=== PATIENT | female | born 1940 | race Caucasian/White ===

== ENCOUNTER 2016-11-12 19:27 | Inpatient (IN) | payer MEDICARE, BC ==
--- NOTE | 2016-11-12 20:48 | EDM.PDOC ---
ED HPI GENERAL MEDICAL PROBLEM - General Chief Complaint: Back Pain or Injury Stated Complaint: CHEST PAIN,SOB LOWER BACK PAIN FOR ABOUT A MONTH Time Seen by Provider: 11/12/16 19:42 Source of Information: Reports: Patient History Limitations: Reports: No Limitations - History of Present Illness INITIAL COMMENTS - FREE TEXT/NARRATIVE: The patient is a 76-year-old female with multiple complaints. Her first complaint is low back pain. She states that she's had trouble with low back pain for a couple of weeks there was no injury or fall. Pain is located in low back, comes and goes, sometimes worse with movement and with lying down. She occasionally takes an Aleve or acetaminophen but hasn't had much relief with this. She did see a clinic provider and had x-rays of her back taken a few days ago. She was told she has arthritis in the back. She also is an MRI scan scheduled for 4 days from now. No weakness or numbness or urinary problems. No fever or recent illness. Additionally, she has a history of a valve replacement and heart failure and is complaining of increased bilateral lower extremity swelling. She is compliant with her 40 mg of Lasix daily and also takes hydrochlorothiazide. States she hasn't really seen a doctor about this problem in quite a while. 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 She has some pain and discomfort in both legs. States that the swelling was as high as her thighs, it's actually a little bit better today and only reaches her knees. She does not wear compression stockings. No chest pain. She does sometimes feel short of breath. She states she is able to lie flat at night. No cough or fever. Right Lower Back Pain Score (Numeric/FACES): 10 - Related Data Allergies Allergy/AdvReac Type Severity Reaction Status Date / Time No Known Allergies Allergy Verified 11/12/16 19:46 Home Meds: Home Meds Aspirin [Halfprin] 81 mg PO DAILY 11/12/16 [History] Furosemide 40 mg PO 11/12/16 [History] Losartan Potassium 50 mg PO DAILY 11/12/16 [History] Potassium Chloride 10 meq PO DAILY 11/12/16 [History] Simvastatin [Zocor] 20 mg PO BEDTIME 11/12/16 [History] SitaGLIPtin [Januvia] 25 mg PO DAILY 11/12/16 [History] Past Medical History Cardiovascular History: Reports: Heart Valve Replacement, Hypertension Gastrointestinal History: Reports: Chronic Constipation Endocrine/Metabolic History: Reports: Diabetes, Type II Social & Family History - Tobacco Use Smoking Status *Q: Never Smoker - Recreational Drug Use Recreational Drug Use: No ED ROS GENERAL - Review of Systems Review Of Systems: See Below Constitutional: Denies: Fever HEENT: Reports: No Symptoms Respiratory: Reports: Shortness of Breath. Denies: Cough Cardiovascular: Denies: Chest Pain Endocrine: Reports: No Symptoms GI/Abdominal: Denies: Abdominal Pain, Vomiting : Reports: No Symptoms Musculoskeletal: Reports: Leg Pain Skin: Reports: No Symptoms Neurological: Reports: No Symptoms Psychiatric: Reports: No Symptoms Hematologic/Lymphatic: Reports: No Symptoms Immunologic: Reports: No Symptoms ED EXAM,LOWER BACK PAIN/INJURY - Physical Exam Exam: See Below Exam Limited By: No Limitations General Appearance: Alert, WD/WN, No Apparent Distress Eye Exam: Bilateral Eye: PERRL Ears: Normal External Exam Nose: Normal Inspection Throat/Mouth: Normal Inspection, Normal Voice, No Airway Compromise Head: Atraumatic, Normocephalic Neck: Normal Inspection, Supple, Non-Tender, Full Range of Motion Respiratory/Chest: No Respiratory Distress, Lungs Clear, Normal Breath Sounds, No Accessory Muscle Use, Chest Non-Tender Cardiovascular: Normal Peripheral Pulses, Regular Rate, Rhythm, No Murmur GI/Abdominal: Soft, Non-Tender, No Distention. No: Rebound Rectal (Female) Exam: Normal Rectal Tone, Heme + Stool, Hemorrhoids, Other ( brown stool) Back Exam: Normal Inspection Extremities: Pedal Edema, Other (Bilateral, symmetric, 2+, extends to the knees) Neurological: Alert, Normal Mood/Affect, Normal Dorsiflexion, Normal Plantar Flexion, No Motor/Sensory Deficits, Oriented x 3 Psychiatric: Normal Affect, Normal Mood Skin Exam: Warm, Dry, Intact, Normal Color, No Rash Course - Vital Signs Last Recorded V/S: Last Vital Signs Temp 36.5 C 11/12/16 19:40 Pulse 67 11/12/16 19:40 Resp 20 11/12/16 19:40 BP 146/66 H 11/12/16 19:40 Pulse Ox 99 11/12/16 19:40 - Orders/Labs/Meds Orders: Active Orders 24 hr Category Date Time Status Patient Status [ADT] Routine ADT 11/12/16 21:34 Active EKG 12 Lead [EKG Documentation Completion] [RC] STAT Care 11/12/16 20:21 Active Chest 1V Frontal [CR] Stat Exams 11/12/16 20:42 Taken BILIRUBIN DIRECT [CHEM] Stat Lab 11/12/16 20:30 Received HAPTOGLOBIN [REF] Stat Lab 11/12/16 21:23 Ordered LDH, ISOENZYMES [REF] Stat Lab 11/12/16 21:24 Ordered TYPE AND SCREEN [BBK] Stat Lab 11/12/16 20:48 Ordered Labs: Laboratory Tests 11/12/16 11/12/16 11/12/16 Range/Units 20:33 20:33 20:33 WBC 7.88 (3.98-10.04) K/mm3 RBC 2.54 L (3.98-5.22) M/mm3 Hgb 7.0 L* (11.2-15.7) gm/L Hct 23.3 L (34.1-44.9) % MCV 91.7 (79.4-94.8) fl MCH 27.6 (25.6-32.2) pg MCHC 30.0 L (32.2-35.5) g/dl RDW Std Deviation 50.8 H (36.4-46.3) fL Plt Count 244 (182-369) K/mm3 MPV 9.5 (9.4-12.3) fl Neut % (Auto) 67.3 (34.0-71.1) % Lymph % (Auto) 18.3 L (19.3-51.7) % [place] % (Auto) 11.2 (4.7-12.5) % Eos % (Auto) 2.5 (0.7-5.8) Baso % (Auto) 0.4 (0.1-1.2) % Neut # (Auto) 5.31 (1.56-6.13) K/mm3 Lymph # (Auto) 1.44 (1.18-3.74) K/mm3 [place] # (Auto) 0.88 H (0.24-0.36) K/mm3 Eos # (Auto) 0.20 (0.04-0.36) K/mm3 Baso # (Auto) 0.03 (0.01-0.08) K/mm3 Manual Slide Review Abnormal smear PT (8.0-13.0) SECONDS INR Sodium 142 (136-145) mEq/L Potassium 4.4 (3.5-5.1) mEq/L Chloride 106 (98-107) mEq/L Carbon Dioxide 27 (21-32) mEq/L Anion Gap 13.4 (5-15) BUN 68 H (7-18) mg/dL Creatinine 1.9 H (0.55-1.02) mg/dL Est Cr Clr Drug Dosing 23.21 mL/min Estimated GFR (MDRD) 26 (>60) mL/min BUN/Creatinine Ratio 35.8 H (14-18) Glucose 100 (83-115) mg/dL Calcium 8.8 (8.5-10.1) mg/dL Total Bilirubin 0.5 (0.2-1.0) mg/dL AST 23 (15-37) U/L ALT 24 (14-59) U/L Alkaline Phosphatase 91 (46-116) U/L Troponin I < 0.017 (0.00-0.056) ng/mL B-Natriuretic Peptide 540 H (0-100) pg/mL Total Protein 7.1 (6.4-8.2) g/dl Albumin 3.5 (3.4-5.0) g/dl Globulin 3.6 gm/dL Albumin/Globulin Ratio 1.0 (1-2) Urine Color (Yellow) Urine Appearance (Clear) Urine pH (5.0-8.0) Ur Specific [place] (1.005-1.030) Urine Protein (Negative) Urine Glucose (UA) (Negative) Urine Ketones (Negative) Urine Occult Blood (Negative) Urine Nitrite (Negative) Urine Bilirubin (Negative) Urine Urobilinogen (0.2-1.0) Ur Leukocyte Esterase (Negative) Urine RBC (0-5) /hpf Urine WBC (0-5) /hpf Ur Epithelial Cells (0-5) /hpf Urine Bacteria (FEW) /hpf Urine Mucus (FEW) /hpf 11/12/16 11/12/16 Range/Units 20:33 20:51 WBC (3.98-10.04) K/mm3 RBC (3.98-5.22) M/mm3 Hgb (11.2-15.7) gm/L Hct (34.1-44.9) % MCV (79.4-94.8) fl MCH (25.6-32.2) pg MCHC (32.2-35.5) g/dl RDW Std Deviation (36.4-46.3) fL Plt Count (182-369) K/mm3 MPV (9.4-12.3) fl Neut % (Auto) (34.0-71.1) % Lymph % (Auto) (19.3-51.7) % [place] % (Auto) (4.7-12.5) % Eos % (Auto) (0.7-5.8) Baso % (Auto) (0.1-1.2) % Neut # (Auto) (1.56-6.13) K/mm3 Lymph # (Auto) (1.18-3.74) K/mm3 [place] # (Auto) (0.24-0.36) K/mm3 Eos # (Auto) (0.04-0.36) K/mm3 Baso # (Auto) (0.01-0.08) K/mm3 Manual Slide Review PT 10.8 (8.0-13.0) SECONDS INR 0.99 Sodium (136-145) mEq/L Potassium (3.5-5.1) mEq/L Chloride (98-107) mEq/L Carbon Dioxide (21-32) mEq/L Anion Gap (5-15) BUN (7-18) mg/dL Creatinine (0.55-1.02) mg/dL Est Cr Clr Drug Dosing mL/min Estimated GFR (MDRD) (>60) mL/min BUN/Creatinine Ratio (14-18) Glucose (83-115) mg/dL Calcium (8.5-10.1) mg/dL Total Bilirubin (0.2-1.0) mg/dL AST (15-37) U/L ALT (14-59) U/L Alkaline Phosphatase (46-116) U/L Troponin I (0.00-0.056) ng/mL B-Natriuretic Peptide (0-100) pg/mL Total Protein (6.4-8.2) g/dl Albumin (3.4-5.0) g/dl Globulin gm/dL Albumin/Globulin Ratio (1-2) Urine Color Light yellow (Yellow) Urine Appearance Clear (Clear) Urine pH 6.0 (5.0-8.0) Ur Specific [place] 1.015 (1.005-1.030) Urine Protein Negative (Negative) Urine Glucose (UA) Negative (Negative) Urine Ketones Negative (Negative) Urine Occult Blood Negative (Negative) Urine Nitrite Negative (Negative) Urine Bilirubin Negative (Negative) Urine Urobilinogen 0.2 (0.2-1.0) Ur Leukocyte Esterase 2+ H (Negative) Urine RBC 0-5 (0-5) /hpf Urine WBC 10-20 H (0-5) /hpf Ur Epithelial Cells 5-10 H (0-5) /hpf Urine Bacteria Rare (FEW) /hpf Urine Mucus Not seen (FEW) /hpf Meds: Medications Discontinued Medications Generic Name Dose Route Start Last Admin Trade Name Freq PRN Reason Stop Dose Admin Pantoprazole Sodium 80 mg 11/12/16 21:22 Protonix Iv IVPUSH 11/12/16 21:23 .BOLUS ONE - Re-Assessments/Exams Free Text/Narrative Re-Assessment/Exam: 11/12/16 21:[address] Holt who agrees to admit the patient. Departure - Departure Time of Disposition: 21:43 Disposition: Admitted As Inpatient 65 Clinical Impression: Acute blood loss anemia, Acute kidney injury, Shortness of breath Gastrointestinal bleed Qualifiers: GI bleed type/associated pathology: unspecified gastrointestinal hemorrhage type Qualified Code(s): K92.2 - Gastrointestinal hemorrhage, unspecified Back pain Qualifiers: Back pain location: low back pain Chronicity: acute Back pain laterality: midline Sciatica presence: without sciatica Qualified Code(s): M54.5 - Low back pain - Discharge Information Forms: ED Department Discharge - My Orders Last 24 Hours: My Active Orders 11/12/16 20:21 EKG 12 Lead [EKG Documentation Completion] [RC] STAT 11/12/16 20:30 BILIRUBIN DIRECT [CHEM] Stat 11/12/16 20:42 Chest 1V Frontal [CR] Stat 11/12/16 20:48 TYPE AND SCREEN [BBK] Stat 11/12/16 21:23 HAPTOGLOBIN [REF] Stat 11/12/16 21:24 LDH, ISOENZYMES [REF] Stat 11/12/16 21:34 Patient Status [ADT] Routine - Assessment/Plan Last 24 Hours: My Active Orders 11/12/16 20:21 EKG 12 Lead [EKG Documentation Completion] [RC] STAT 11/12/16 20:30 BILIRUBIN DIRECT [CHEM] Stat 11/12/16 20:42 Chest 1V Frontal [CR] Stat 11/12/16 20:48 TYPE AND SCREEN [BBK] Stat 11/12/16 21:23 HAPTOGLOBIN [REF] Stat 11/12/16 21:24 LDH, ISOENZYMES [REF] Stat 11/12/16 21:34 Patient Status [ADT] Routine
[2016-11-12] MEDS ORDERED: Pantoprazole 40 MG Vial IVPUSH ONE (21:22)
[2016-11-12] MEDS ORDERED: Acetaminophen 325 MG Tab PO PRN (22:52)
[2016-11-12] MEDS ORDERED: Ondansetron 4 MG/2 ML SDV IVPUSH PRN (22:54)
[2016-11-12] MEDS ORDERED: Piperacillin/Tazobactam 4.5 GM in Sodium Chloride 0.9% 100 ML IV ONE (23:00)
[2016-11-13] MEDS: Acetaminophen/HYDROcodone 325-5 MG Tab PO PRN (06:39)
[2016-11-13] MEDS ORDERED: Piperacillin/Tazobactam 4.5 GM in Sodium Chloride 0.9% 100 ML IV SCH (07:00)
--- NOTE | 2016-11-13 08:36 | CR ---
Chest: Portable view of the chest was obtained. Comparison: No previous study. Heart is enlarged. Upper mediastinum is normal. Atherosclerotic change seen within the aortic knob. Prosthetic heart valve is seen. Lungs are clear with no acute infiltrates. Questionable mild pulmonary vascular congestion is present. Impression: 1. Cardiomegaly with prosthetic heart valve. 2. Questionable mild pulmonary vascular congestion. Diagnostic code #3
--- NOTE | 2016-11-13 08:47 | PCM.CONSN ---
- General Info Date of Service: 11/13/16 - Patient Data Vitals - most recent: Last Vital Signs Temp 97.3 F 11/13/16 08:02 Pulse 133 H 11/13/16 08:02 Resp 18 11/13/16 08:02 BP 137/83 11/13/16 08:02 Pulse Ox 96 11/13/16 08:02 Weight - most recent: 102.603 kg I&O - last 24 hours: Intake & Output 11/12/16 11/13/16 11/13/16 23:59 07:59 15:59 Intake Total 350 Output Total 400 Balance -50 Lab Results last 24 hrs: Laboratory Results - last 24 hr 11/13/16 11/13/16 Range/Units 05:50 05:50 WBC 5.82 (3.98-10.04) K/mm3 RBC 2.54 L (3.98-5.22) M/mm3 Hgb 7.1 L* (11.2-15.7) gm/L Hct 23.5 L (34.1-44.9) % MCV 92.5 (79.4-94.8) fl MCH 28.0 (25.6-32.2) pg MCHC 30.2 L (32.2-35.5) g/dl RDW Std Deviation 51.9 H (36.4-46.3) fL Plt Count 244 (182-369) K/mm3 MPV 10.2 (9.4-12.3) fl Sodium 141 (136-145) mEq/L Potassium 3.9 (3.5-5.1) mEq/L Chloride 106 (98-107) mEq/L Carbon Dioxide 25 (21-32) mEq/L Anion Gap 13.9 (5-15) BUN 63 H (7-18) mg/dL Creatinine 1.8 H (0.55-1.02) mg/dL Est Cr Clr Drug Dosing 24.50 mL/min Estimated GFR (MDRD) 27 (>60) mL/min BUN/Creatinine Ratio 35.0 H (14-18) Glucose 183 H (83-115) mg/dL Calcium 8.7 (8.5-10.1) mg/dL Direct Bilirubin 0.10 (0.0-0.2) mg/dl Lactate Dehydrogenase 255 H (81-234) U/L C-Reactive Protein < 0.2 (<1.0) mg/dL Med Orders - Current: Current Medications Hydrocodone Bitart/Acetaminophen ([place] 325-5 Mg) 1 tab PO Q4H PRN PRN Reason: Pain Last Admin: 11/13/16 06:39 Dose: 1 tab Temazepam (Restoril) 7.5 mg PO BEDTIME PRN PRN Reason: Sleep Discontinued Medications Pantoprazole Sodium (Protonix Iv) 80 mg IVPUSH .BOLUS ONE Stop: 11/12/16 21:23 Last Admin: 11/12/16 21:44 Dose: 80 mg Consult PN Assessment/Plan Problem List Initiated/Reviewed/Updated: Yes Plan: surgical consult dictated CHARLENE
[2016-11-13] MEDS ORDERED: Enoxaparin 40 MG/0.4 ML Syringe SUBCUT SCH (09:00)
--- NOTE | 2016-11-13 10:36 | CONS ---
CONSULTING PHYSICIAN: Chris Hunter MD DATE OF CONSULTATION: 11/13/2016 HISTORY OF PRESENT ILLNESS: A 76-year-old female comes in through the emergency room complaining of low back pain. This has been a chronic problem for many years, but the last 3 weeks is increasing in intensity, low back without any radiation, constant throughout the day and night. She has been taking some Aleve. She has had a workup with plain x-rays, MRI as scheduled. The patient was noted on workup in the emergency room that she had a low hemoglobin of 7.0 with an estimated creatinine clearance of 26 and creatinine 1.9, BUN 68. The patient's further history is that she has been taking some Aleve in the last couple of days, noted some black tarry stools. She states she has had this problem some years ago which was associated with anemia and she was given iron and the condition resolved and her hemoglobin improved. She also states that she has had a heart valve that was placed in [place] greater than 10 years ago. She says it is a pig valve and not sure what position, possibly aortic. In addition to this, the patient is complaining over the last 3 weeks some lower extremity swelling and some mild shortness of breath. REVIEW OF SYSTEMS: Denies any chest pain, cough, hoarseness, slight faintness, weakness. No numbness or convulsions. No hemoptysis or hematochezia. The patient states that she has never had a colonoscopy. The patient does not see a doctor and since her doctor in [place] or retired, has not sought any medical help. Does not smoke. Does not drink. Reports type 2 diabetes, chronic constipation. MEDICATIONS: Per medication reconciliation form consisting of Januvia, Zocor, chloride, potassium, Lasix, and aspirin. SOCIAL HISTORY: Noncontributory. PHYSICAL EXAMINATION: VITAL SIGNS: Shows temperature 36, pulse 67, respirations 20, and blood pressure 146/66. HEENT: Eyes, sclerae white. Extraocular muscle motion normal. Oral cavity, healthy mucous membrane. NECK: Supple. LUNGS: Occasional rales in the right base. ABDOMEN: Soft. No tenderness, guarding, rebound, or organomegaly. HEART: Tones regular rate, opening muffled sound noted in the aortic suggesting aortic valve. EXTREMITIES: Upper extremities, unremarkable. Lower extremities; edema. No sensorineural deficit. NEUROLOGIC: Cranial nerves 3 through 12 intact. PSYCHIATRIC: Stable. SKIN: Warm and dry. ASSESSMENT: Congestive heart failure, stage IV renal failure, heart valve replacement. This was placed in [place] probably a pig valve aortic position. Although, this has not been confirmed by records. Anemia and likely gastrointestinal bleed. RECOMMENDATION: Once the patient's medical status is improved, we will then proceed with EGD and colonoscopy. JENNIFER /[id number]
[2016-11-13] MEDS ORDERED: Sodium Chloride 0.9% 250 ML ONE (11:49)
--- NOTE | 2016-11-13 12:46 | PCM.HP ---
H&P History of Present Illness - General Date of Service: 11/13/16 Source of Information: Patient, Provider History Limitations: Reports: No Limitations - History of Present Illness Initial Comments - Free Text/Narative: 76 year old female who initially had a complaint of back discomfort, however was admitted for heart failure and a low hemoglobin. She has not seen a healthcare provider in many years. She is a diabetic who never checks her blood sugar. She has only seen a physician for her heart valve, three weeks after it was inserted over 20 years ago.. The most recent compliant is lower extremity swelling; she denies orthopnea, PND or chest pain. She will receive PRBCs during her hospitalization. Right Lower Back Pain Score (Numeric/FACES): 5 - Related Data Allergies/Adverse Reactions: Allergies Allergy/AdvReac Type Severity Reaction Status Date / Time No Known Allergies Allergy Verified 11/12/16 23:07 Home Medications: Home Meds Aspirin [Halfprin] 81 mg PO DAILY 11/12/16 [History] Furosemide 40 mg PO DAILY 11/12/16 [History] Losartan Potassium 50 mg PO DAILY 11/12/16 [History] Potassium Chloride 10 meq PO DAILY 11/12/16 [History] Simvastatin [Zocor] 20 mg PO BEDTIME 11/12/16 [History] SitaGLIPtin [Januvia] 25 mg PO DAILY 11/12/16 [History] Past Medical History Cardiovascular History: Reports: Heart Failure, Heart Murmur, Heart Valve Replacement, High Cholesterol, Hypertension Gastrointestinal History: Reports: Chronic Constipation Musculoskeletal History: Reports: Back Pain, Chronic Other Musculoskeletal History: C/o low back pain. Unsure of reason. Endocrine/Metabolic History: Reports: Diabetes, Type II - Past Surgical History HEENT Surgical History: Reports: Cataract Surgery Cardiovascular Surgical History: Reports: Valve Replacement Social & Family History - Family History Family Medical History: Noncontributory Endocrine/Metabolic: Reports: Diabetes, type II - Tobacco Use Smoking Status *Q: Never Smoker Second Hand Smoke Exposure: Yes - Caffeine Use Other Caffeine Use: Coffee 2-3 cups/day. Light diet pepsi 1-5/day - Recreational Drug Use Recreational Drug Use: No H&P Review of Systems - Review of Systems: Review Of Systems: See Below General: Reports: Weakness, Fatigue HEENT: Reports: No Symptoms Pulmonary: Reports: No Symptoms Cardiovascular: Reports: No Symptoms Gastrointestinal: Reports: No Symptoms Genitourinary: Reports: No Symptoms Musculoskeletal: Reports: No Symptoms Skin: Reports: No Symptoms Psychiatric: Reports: No Symptoms Neurological: Reports: No Symptoms Hematologic/Lymphatic: Reports: No Symptoms Immunologic: Reports: No Symptoms Exam - Exam Exam: See Below - Vital Signs Vital Signs: Last Vital Signs Temp 36.6 C 11/13/16 12:30 Pulse 55 L 11/13/16 12:30 Resp 20 11/13/16 12:30 BP 122/79 11/13/16 12:30 Pulse Ox 100 11/13/16 12:30 Weight: 102.603 kg - Exam Quality Assessment: DVT Prophylaxis General: Alert, Oriented, Cooperative HEENT: Nares Patent, Normal Nasal Septum, Posterior Pharynx Clear, Pupils Equal , Pupils Reactive, TMs Clear Neck: Supple, Trachea Midline Lungs: Normal Respiratory Effort, Decreased Breath Sounds Cardiovascular: Regular Rate, Diastolic Murmur GI/Abdominal Exam: Normal Bowel Sounds, Soft, Non-Tender, No Organomegaly, No Distention (Female) Exam: Deferred Rectal (Female) Exam: Deferred Back Exam: Normal Inspection Extremities: Normal Inspection, Pedal Edema Neurological: Cranial Nerves Intact, Normal Gait, Normal Speech Neuro Extensive - Mental Status: Alert, Oriented x3 - Patient Data Lab Results Last 24 hrs: Laboratory Results - last 24 hr 11/13/16 11/13/16 Range/Units 05:50 05:50 WBC 5.82 (3.98-10.04) K/mm3 RBC 2.54 L (3.98-5.22) M/mm3 Hgb 7.1 L* (11.2-15.7) gm/L Hct 23.5 L (34.1-44.9) % MCV 92.5 (79.4-94.8) fl MCH 28.0 (25.6-32.2) pg MCHC 30.2 L (32.2-35.5) g/dl RDW Std Deviation 51.9 H (36.4-46.3) fL Plt Count 244 (182-369) K/mm3 MPV 10.2 (9.4-12.3) fl Sodium 141 (136-145) mEq/L Potassium 3.9 (3.5-5.1) mEq/L Chloride 106 (98-107) mEq/L Carbon Dioxide 25 (21-32) mEq/L Anion Gap 13.9 (5-15) BUN 63 H (7-18) mg/dL Creatinine 1.8 H (0.55-1.02) mg/dL Est Cr Clr Drug Dosing 24.50 mL/min Estimated GFR (MDRD) 27 (>60) mL/min BUN/Creatinine Ratio 35.0 H (14-18) Glucose 183 H (83-115) mg/dL Calcium 8.7 (8.5-10.1) mg/dL Direct Bilirubin 0.10 (0.0-0.2) mg/dl Lactate Dehydrogenase 255 H (81-234) U/L C-Reactive Protein < 0.2 (<1.0) mg/dL Result Diagrams: 11/14/16 05:31 11/14/16 05:31 *Q Meaningful Use (ADM) - VTE *Q VTE Criteria *Q: - Stroke *Q Stroke Criteria *Q: - AMI *Q AMI Criteria *Q: - Problem List (1) Diastolic CHF SNOMED Code(s): 272040499, 615818234 ICD Code: I50.30 - UNSPECIFIED DIASTOLIC (CONGESTIVE) HEART FAILURE Status : Acute Current Visit: Yes (2) Acute blood loss anemia SNOMED Code(s): 991795220 ICD Code: D62 - ACUTE POSTHEMORRHAGIC ANEMIA Status: Acute Current Visit : Yes (3) Acute kidney injury SNOMED Code(s): 33919632 ICD Code: N17.9 - ACUTE KIDNEY FAILURE, UNSPECIFIED Status: Acute Current Visit: Yes (4) Back pain SNOMED Code(s): 410419390 ICD Code: M54.9 - DORSALGIA, UNSPECIFIED Status: Acute Current Visit: Yes Qualifiers: Back pain location: low back pain Chronicity: acute Back pain laterality : midline Sciatica presence: without sciatica Qualified Code(s): M54.5 - Low back pain (5) Shortness of breath SNOMED Code(s): 301187193 ICD Code: R06.02 - SHORTNESS OF BREATH Status: Acute Current Visit: Yes Problem List Initiated/Reviewed/Updated: Yes Orders Last 24hrs: Active Orders 24 hr Category Date Time Status Antiembolic Devices [RC] BID Care 11/12/16 22:52 Active Notify Provider Consults [RC] ASDIRECTED Care 11/12/16 23:06 Active Oxygen Therapy Adult [Oxygen Therapy] [RC] ASDIRECTED Care 11/12/16 22:50 Inactive Up ad Puja [RC] QSHIFT Care 11/13/16 00:13 Active Vital Signs [RC] Q4HR Care 11/12/16 23:40 Active Consult to Occupational Therapy [OT Evaluation and Cons 11/12/16 23:10 Active Treatment] [CONS] Routine Consult to Physician [CONS] Routine Cons 11/12/16 23:05 Active Consult to Distribution Specialist [CONS] Routine Cons 11/13/16 08:00 Active PT Evaluation and Treatment [CONS] Routine Cons 11/12/16 23:10 Active CULTURE URINE [RM] Routine Lab 11/13/16 00:12 Received HEMOGLOBIN [HEME] Routine Lab 11/13/16 09:41 Ordered RED BLOOD CELLS LP [BBK] Routine Lab 11/13/16 09:41 Results Acetaminophen/HYDROcodone [[place] 325-5 MG] Med 11/13/16 06:16 Active 1 tab PO Q4H PRN Furosemide [Lasix] Med 11/13/16 14:00 Active 40 mg IVPUSH BID@1400,1630 Temazepam [Restoril] Med 11/12/16 22:51 Active 7.5 mg PO BEDTIME PRN cefTRIAXone [Rocephin] 2 gm Med 11/13/16 13:00 Active Sodium Chloride 0.9% [Normal Saline] 100 ml IV Q24H Heat Therapy [OM.PC] Routine Oth 11/13/16 04:40 Ordered YASSINE Hose [Antiembolic Hose] [OM.PC] Routine Oth 11/12/16 22:52 Ordered Transfuse Red Blood Cells [COMM] Routine Oth 11/13/16 09:41 Ordered Resuscitation Status Routine Resus Stat 11/12/16 23:07 Ordered Medication Orders Hydrocodone Bitart/Acetaminophen ([place] 325-5 Mg) 1 tab PO Q4H PRN PRN Reason: Pain Last Admin: 11/13/16 06:39 Dose: 1 tab Furosemide (Lasix) 40 mg IVPUSH BID@1400,1630 ALVINA Stop: 11/13/16 16:31 Ceftriaxone Sodium 2 gm/ (Sodium Chloride) 100 mls @ 200 mls/hr IV Q24H ALVINA Temazepam (Restoril) 7.5 mg PO BEDTIME PRN PRN Reason: Sleep Assessment/Plan Comment:: Impression: GI bleed, hemodynamically stable History of porcine Ao valve CHF, diastolic cf systolic ARF, CKD stage IV currently Chronic Diabetes Melitus HTN HLD Plan: Transfuse 2 units PRBCs Diurese as tolerated Hold nephrotoxin meds Resume Home meds 2D echo re; AVR Diabetic teaching Gen surg consult Fe studies, start FeSO4 SW/PT/OT DVT/GI prophyalxis
[2016-11-13] MEDS ORDERED: 50% Dextrose in Water 50 ML Syringe IVPUSH PRN (12:58)
[2016-11-13] MEDS: Sodium Chloride 0.9% 250 ML IV SCH ×2 (14:00→17:00)
[2016-11-13] MEDS: Furosemide 40 MG/4 ML VIAL IVPUSH SCH ×2 (15:19→19:49)
[2016-11-13] MEDS: cefTRIAXone 2 GM in Sodium Chloride 0.9% 100 ML IV SCH (16:06)
--- NOTE | 2016-11-13 16:41 | US ---
Renal ultrasound: Multiple real-time images of the kidneys were obtained. Kidneys show no hydronephrosis or mass. Resistivity indices are slightly inaccurate but felt to be mildly elevated compatible with medical renal disease. Right kidney measures 10.6 cm in length. Left kidney measures 10.7 cm in length. Prevoid volume within the bladder is 229 mL and post void volume is 19 mL. Impression: 1. Somewhat elevated resistivity indices are felt to be present compatible with medical renal disease. 2. Minimal postvoid residual within the bladder. 3. No additional abnormality identified on renal ultrasound exam. Diagnostic code #3
[2016-11-13] MEDS: Insulin Aspart 100 Units/ML 3 ML Pen SUBCUT SCH ×2 (17:24→21:41)
[2016-11-13] MEDS: Simvastatin 20 MG Tab PO SCH (23:11)
[2016-11-13] MEDS: Temazepam 7.5 MG Cap PO PRN (23:15)
[2016-11-14] MEDS: Insulin Aspart 100 Units/ML 3 ML Pen SUBCUT SCH ×4 (06:12→22:46)
[2016-11-14] MEDS ORDERED: Diphtheria,Pertussis(Acell),Tetanus Vaccine 0.5 ML SDV IM ONE (10:00)
[2016-11-14] MEDS: Aspirin 81 MG Tab.EC PO SCH (10:01)
[2016-11-14] MEDS: Losartan 25 MG Tab PO SCH (10:06)
[2016-11-14] MEDS: cefTRIAXone 2 GM in Sodium Chloride 0.9% 100 ML IV SCH (13:46)
--- NOTE | 2016-11-14 15:18 | PCM.PN ---
- General Info Date of Service: 11/14/16 Functional Status: Reports: Pain Controlled, Tolerating Diet, Ambulating - Review of Systems General: Reports: Weakness, Fatigue HEENT: Reports: No Symptoms Pulmonary: Reports: No Symptoms Cardiovascular: Reports: No Symptoms Gastrointestinal: Reports: No Symptoms Genitourinary: Reports: No Symptoms Musculoskeletal: Reports: No Symptoms Skin: Reports: No Symptoms Neurological: Reports: No Symptoms Psychiatric: Reports: No Symptoms - Patient Data Vitals - Most Recent: Last Vital Signs Temp 36.3 C 11/14/16 11:50 Pulse 66 11/14/16 11:54 Resp 12 11/14/16 11:50 BP 132/72 11/14/16 11:50 Pulse Ox 98 11/14/16 11:54 Weight - Most Recent: 102.603 kg I&O - Last 24 Hours: Intake & Output 11/14/16 11/14/16 11/14/16 06:59 14:59 22:59 Intake Total 750 300 Output Total 700 Balance 50 300 Lab Results Last 24 Hours: Laboratory Results - last 24 hr 11/13/16 11/13/16 11/13/16 Range/Units 14:09 17:15 21:15 WBC (3.98-10.04) K/mm3 RBC (3.98-5.22) M/mm3 Hgb 8.5 L (11.2-15.7) gm/L Hct (34.1-44.9) % MCV (79.4-94.8) fl MCH (25.6-32.2) pg MCHC (32.2-35.5) g/dl RDW Std Deviation (36.4-46.3) fL Plt Count (182-369) K/mm3 MPV (9.4-12.3) fl Neut % (Auto) (34.0-71.1) % Lymph % (Auto) (19.3-51.7) % [place] % (Auto) (4.7-12.5) % Eos % (Auto) (0.7-5.8) Baso % (Auto) (0.1-1.2) % Neut # (Auto) (1.56-6.13) K/mm3 Lymph # (Auto) (1.18-3.74) K/mm3 [place] # (Auto) (0.24-0.36) K/mm3 Eos # (Auto) (0.04-0.36) K/mm3 Baso # (Auto) (0.01-0.08) K/mm3 Sodium (136-145) mEq/L Potassium (3.5-5.1) mEq/L Chloride (98-107) mEq/L Carbon Dioxide (21-32) mEq/L Anion Gap (5-15) BUN (7-18) mg/dL Creatinine (0.55-1.02) mg/dL Est Cr Clr Drug Dosing mL/min Estimated GFR (MDRD) (>60) mL/min BUN/Creatinine Ratio (14-18) Glucose (83-115) mg/dL POC Glucose 119 H (83-110) mg/dL Hemoglobin A1c 6.10 (4.50-6.20) % Calcium (8.5-10.1) mg/dL 11/13/16 11/14/16 11/14/16 Range/Units 21:35 05:31 05:31 WBC 7.72 (3.98-10.04) K/mm3 RBC 3.07 L (3.98-5.22) M/mm3 Hgb 8.5 L (11.2-15.7) gm/L Hct 27.5 L (34.1-44.9) % MCV 89.6 (79.4-94.8) fl MCH 27.7 (25.6-32.2) pg MCHC 30.9 L (32.2-35.5) g/dl RDW Std Deviation 51.4 H (36.4-46.3) fL Plt Count 209 (182-369) K/mm3 MPV 10.5 (9.4-12.3) fl Neut % (Auto) 70.9 (34.0-71.1) % Lymph % (Auto) 15.8 L (19.3-51.7) % [place] % (Auto) 10.5 (4.7-12.5) % Eos % (Auto) 2.2 (0.7-5.8) Baso % (Auto) 0.3 (0.1-1.2) % Neut # (Auto) 5.48 (1.56-6.13) K/mm3 Lymph # (Auto) 1.22 (1.18-3.74) K/mm3 [place] # (Auto) 0.81 H (0.24-0.36) K/mm3 Eos # (Auto) 0.17 (0.04-0.36) K/mm3 Baso # (Auto) 0.02 (0.01-0.08) K/mm3 Sodium 142 (136-145) mEq/L Potassium 3.9 (3.5-5.1) mEq/L Chloride 106 (98-107) mEq/L Carbon Dioxide 26 (21-32) mEq/L Anion Gap 13.9 (5-15) BUN 53 H (7-18) mg/dL Creatinine 1.6 H (0.55-1.02) mg/dL Est Cr Clr Drug Dosing 27.56 mL/min Estimated GFR (MDRD) 31 (>60) mL/min BUN/Creatinine Ratio 33.1 H (14-18) Glucose 112 (83-115) mg/dL POC Glucose 127 H (83-110) mg/dL Hemoglobin A1c (4.50-6.20) % Calcium 8.7 (8.5-10.1) mg/dL 11/14/16 11/14/16 Range/Units 06:08 11:06 WBC (3.98-10.04) K/mm3 RBC (3.98-5.22) M/mm3 Hgb (11.2-15.7) gm/L Hct (34.1-44.9) % MCV (79.4-94.8) fl MCH (25.6-32.2) pg MCHC (32.2-35.5) g/dl RDW Std Deviation (36.4-46.3) fL Plt Count (182-369) K/mm3 MPV (9.4-12.3) fl Neut % (Auto) (34.0-71.1) % Lymph % (Auto) (19.3-51.7) % [place] % (Auto) (4.7-12.5) % Eos % (Auto) (0.7-5.8) Baso % (Auto) (0.1-1.2) % Neut # (Auto) (1.56-6.13) K/mm3 Lymph # (Auto) (1.18-3.74) K/mm3 [place] # (Auto) (0.24-0.36) K/mm3 Eos # (Auto) (0.04-0.36) K/mm3 Baso # (Auto) (0.01-0.08) K/mm3 Sodium (136-145) mEq/L Potassium (3.5-5.1) mEq/L Chloride (98-107) mEq/L Carbon Dioxide (21-32) mEq/L Anion Gap (5-15) BUN (7-18) mg/dL Creatinine (0.55-1.02) mg/dL Est Cr Clr Drug Dosing mL/min Estimated GFR (MDRD) (>60) mL/min BUN/Creatinine Ratio (14-18) Glucose (83-115) mg/dL POC Glucose 106 120 H (83-110) mg/dL Hemoglobin A1c (4.50-6.20) % Calcium (8.5-10.1) mg/dL Med Orders - Current: Current Medications Hydrocodone Bitart/Acetaminophen ([place] 325-5 Mg) 1 tab PO Q4H PRN PRN Reason: Pain Last Admin: 11/13/16 06:39 Dose: 1 tab Aspirin (Halfprin) 81 mg PO DAILY [facility] Last Admin: 11/14/16 10:01 Dose: 81 mg Dextrose/Water (Dextrose 50% In Water) 50 ml IVPUSH ASDIRECTED PRN PRN Reason: Hypoglycemia Ceftriaxone Sodium 2 gm/ (Sodium Chloride) 100 mls @ 200 mls/hr IV Q24H [facility] Last Admin: 11/14/16 13:46 Dose: 200 mls/hr Sodium Chloride (Normal Saline) 250 mls @ 100 mls/hr IV ASDIRECTED [facility] Last Admin: 11/13/16 17:00 Dose: 100 mls/hr Insulin Aspart (Novolog) 0 unit SUBCUT QIDACANDBED [facility] PRN Reason: Protocol Last Admin: 11/14/16 11:42 Dose: Not Given Losartan Potassium (Cozaar) 50 mg PO DAILY [facility] Last Admin: 11/14/16 10:06 Dose: 50 mg Simvastatin (Zocor) 20 mg PO BEDTIME [facility] Last Admin: 11/13/16 23:11 Dose: 20 mg Temazepam (Restoril) 7.5 mg PO BEDTIME PRN PRN Reason: Sleep Last Admin: 11/13/16 23:15 Dose: 7.5 mg Discontinued Medications Diphtheria/Tetanus/Acell Pertussis (Adacel) 0.5 ml IM .ONCE ONE Stop: 11/14/16 10:01 Furosemide (Lasix) 40 mg IVPUSH BID@1400,1630 [facility] Stop: 11/13/16 16:31 Last Admin: 11/13/16 19:49 Dose: 40 mg Sodium Chloride (Normal Saline) Confirm Administered Dose 250 mls @ as directed .ROUTE .STK-MED ONE Stop: 11/13/16 11:50 Last Admin: 11/13/16 15:59 Dose: Not Given Pantoprazole Sodium (Protonix Iv) 80 mg IVPUSH .BOLUS ONE Stop: 11/12/16 21:23 Last Admin: 11/12/16 21:44 Dose: 80 mg - Exam Quality Assessment: DVT Prophylaxis General: Alert, Oriented, Cooperative, No Acute Distress HEENT: Pupils Equal, Pupils Reactive, EOMI, Mucous Membr. Moist/[place] Neck: Supple, Trachea Midline Lungs: Normal Respiratory Effort, Decreased Breath Sounds Cardiovascular: Regular Rate GI/Abdominal Exam: Normal Bowel Sounds, Soft, Non-Tender, No Organomegaly, No Distention (Female) Exam: Deferred Back Exam: Normal Inspection Extremities: Normal Inspection Skin: Warm Neurological: No New Focal Deficit Psy/Mental Status: Alert, Normal Affect, Normal Mood - Problem List & Annotations (1) Diastolic CHF SNOMED Code(s): 066780729, 068475407 Code(s): I50.30 - UNSPECIFIED DIASTOLIC (CONGESTIVE) HEART FAILURE Status: Acute Current Visit: Yes (2) Acute blood loss anemia SNOMED Code(s): 473739621 Code(s): D62 - ACUTE POSTHEMORRHAGIC ANEMIA Status: Acute Current Visit: Yes (3) Acute kidney injury SNOMED Code(s): 07422612 Code(s): N17.9 - ACUTE KIDNEY FAILURE, UNSPECIFIED Status: Acute Current Visit: Yes (4) Back pain SNOMED Code(s): 539978126 Code(s): M54.9 - DORSALGIA, UNSPECIFIED Status: Acute Current Visit: Yes Qualifiers: Back pain location: low back pain Chronicity: acute Back pain laterality : midline Sciatica presence: without sciatica Qualified Code(s): M54.5 - Low back pain (5) Shortness of breath SNOMED Code(s): 749930970 Code(s): R06.02 - SHORTNESS OF BREATH Status: Acute Current Visit: Yes - Problem List Review Problem List Initiated/Reviewed/Updated: Yes - My Orders Last 24 Hours: My Active Orders 11/13/16 17:00 Insulin Aspart [NovoLOG] See Protocol SUBCUT QIDACANDBED 11/13/16 18:06 Congestive Heart Failure Education [OM.PC] Routine 11/13/16 20:25 Vaccines to be Administered [RC] PER UNIT ROUTINE 11/13/16 21:00 Simvastatin [Zocor] 20 mg PO BEDTIME 11/13/16 Dinner Consistent Carbohydrate Diet [DIET] Heart Healthy Diet [DIET] 11/14/16 09:00 Consult to [employer] [Consult to Diabetic Nurse Specialist] [CONS] Routine Aspirin [Halfprin] 81 mg PO DAILY Losartan [Cozaar] 50 mg PO DAILY 11/15/16 05:00 BMP [BASIC METABOLIC PANEL,BMP] [CHEM] DAILY CBC WITH AUTO DIFF [HEME] DAILY CRP [C-REACTIVE PROTEIN] [CHEM] DAILY 11/16/16 05:00 BMP [BASIC METABOLIC PANEL,BMP] [CHEM] DAILY CBC WITH AUTO DIFF [HEME] DAILY CRP [C-REACTIVE PROTEIN] [CHEM] DAILY 11/17/16 05:00 CRP [C-REACTIVE PROTEIN] [CHEM] DAILY - Plan Plan:: Impression: GI bleed, hemodynamically stable History of porcine Ao valve CHF, diastolic cf systolic ARF, CKD stage IV currently Chronic Diabetes Melitus HTN HLD Plan: Transfuse 2 units PRBCs Diurese as tolerated Hold nephrotoxin meds Resume Home meds 2D echo re; AVR Diabetic teaching Gen surg consult Fe studies, start FeSO4 SW/PT/OT DVT/GI prophyalxis
[2016-11-14] MEDS: Sodium Chloride 0.9% 250 ML IV SCH (17:26)
[2016-11-14] MEDS: Furosemide 40 MG/4 ML VIAL IVPUSH SCH (21:05)
[2016-11-14] MEDS: Temazepam 7.5 MG Cap PO PRN (21:32)
[2016-11-14] MEDS: Simvastatin 20 MG Tab PO SCH (21:33)
[2016-11-15] MEDS: Furosemide 40 MG/4 ML VIAL IVPUSH SCH (00:03)
[2016-11-15] MEDS: Insulin Aspart 100 Units/ML 3 ML Pen SUBCUT SCH ×4 (06:43→21:16)
[2016-11-15] MEDS: Aspirin 81 MG Tab.EC PO SCH (09:19)
[2016-11-15] MEDS: Losartan 25 MG Tab PO SCH (09:19)
[2016-11-15] MEDS: Penicillin G Potassium 2.5 MILLUNITS in Sodium Chloride 0.9% 100 ML IV SCH ×3 (10:09→21:07)
--- NOTE | 2016-11-15 12:43 | PCM.PN ---
- General Info Date of Service: 11/15/16 Functional Status: Reports: Pain Controlled, Tolerating Diet, Ambulating, Urinating - Review of Systems General: Reports: Weakness HEENT: Reports: No Symptoms Pulmonary: Reports: No Symptoms Cardiovascular: Reports: No Symptoms Gastrointestinal: Reports: No Symptoms Genitourinary: Reports: No Symptoms Musculoskeletal: Reports: No Symptoms Skin: Reports: No Symptoms Neurological: Reports: No Symptoms Psychiatric: Reports: No Symptoms - Patient Data Vitals - Most Recent: Last Vital Signs Temp 36.4 C 11/15/16 11:43 Pulse 58 L 11/15/16 11:43 Resp 16 11/15/16 11:43 BP 139/47 L 11/15/16 11:43 Pulse Ox 96 11/15/16 11:43 Weight - Most Recent: 102.467 kg I&O - Last 24 Hours: Intake & Output 11/14/16 11/15/16 11/15/16 22:59 06:59 14:59 Intake Total 1318 1252 300 Output Total 1000 Balance 318 1252 300 Lab Results Last 24 Hours: Laboratory Results - last 24 hr 11/14/16 11/14/16 11/15/16 Range/Units 16:42 21:30 06:00 WBC 6.97 (3.98-10.04) K/mm3 RBC 3.63 L (3.98-5.22) M/mm3 Hgb 10.4 L (11.2-15.7) gm/L Hct 32.6 L (34.1-44.9) % MCV 89.8 (79.4-94.8) fl MCH 28.7 (25.6-32.2) pg MCHC 31.9 L (32.2-35.5) g/dl RDW Std Deviation 50.8 H (36.4-46.3) fL Plt Count 203 (182-369) K/mm3 MPV 10.5 (9.4-12.3) fl Neut % (Auto) 66.6 (34.0-71.1) % Lymph % (Auto) 17.6 L (19.3-51.7) % [place] % (Auto) 11.9 (4.7-12.5) % Eos % (Auto) 3.4 (0.7-5.8) Baso % (Auto) 0.4 (0.1-1.2) % Neut # (Auto) 4.63 (1.56-6.13) K/mm3 Lymph # (Auto) 1.23 (1.18-3.74) K/mm3 [place] # (Auto) 0.83 H (0.24-0.36) K/mm3 Eos # (Auto) 0.24 (0.04-0.36) K/mm3 Baso # (Auto) 0.03 (0.01-0.08) K/mm3 Sodium (136-145) mEq/L Potassium (3.5-5.1) mEq/L Chloride (98-107) mEq/L Carbon Dioxide (21-32) mEq/L Anion Gap (5-15) BUN (7-18) mg/dL Creatinine (0.55-1.02) mg/dL Est Cr Clr Drug Dosing mL/min Estimated GFR (MDRD) (>60) mL/min BUN/Creatinine Ratio (14-18) Glucose (83-115) mg/dL POC Glucose 150 H 137 H (83-110) mg/dL Calcium (8.5-10.1) mg/dL C-Reactive Protein (<1.0) mg/dL 11/15/16 11/15/16 11/15/16 Range/Units 06:00 06:15 11:33 WBC (3.98-10.04) K/mm3 RBC (3.98-5.22) M/mm3 Hgb (11.2-15.7) gm/L Hct (34.1-44.9) % MCV (79.4-94.8) fl MCH (25.6-32.2) pg MCHC (32.2-35.5) g/dl RDW Std Deviation (36.4-46.3) fL Plt Count (182-369) K/mm3 MPV (9.4-12.3) fl Neut % (Auto) (34.0-71.1) % Lymph % (Auto) (19.3-51.7) % [place] % (Auto) (4.7-12.5) % Eos % (Auto) (0.7-5.8) Baso % (Auto) (0.1-1.2) % Neut # (Auto) (1.56-6.13) K/mm3 Lymph # (Auto) (1.18-3.74) K/mm3 [place] # (Auto) (0.24-0.36) K/mm3 Eos # (Auto) (0.04-0.36) K/mm3 Baso # (Auto) (0.01-0.08) K/mm3 Sodium 144 (136-145) mEq/L Potassium 3.9 (3.5-5.1) mEq/L Chloride 108 H (98-107) mEq/L Carbon Dioxide 26 (21-32) mEq/L Anion Gap 13.9 (5-15) BUN 49 H (7-18) mg/dL Creatinine 1.4 H (0.55-1.02) mg/dL Est Cr Clr Drug Dosing 31.50 mL/min Estimated GFR (MDRD) 36 (>60) mL/min BUN/Creatinine Ratio 35.0 H (14-18) Glucose 101 (83-115) mg/dL POC Glucose 102 132 H (83-110) mg/dL Calcium 8.9 (8.5-10.1) mg/dL C-Reactive Protein 2.3 H* (<1.0) mg/dL Med Orders - Current: Current Medications Hydrocodone Bitart/Acetaminophen ([place] 325-5 Mg) 1 tab PO Q4H PRN PRN Reason: Pain Last Admin: 11/13/16 06:39 Dose: 1 tab Aspirin (Halfprin) 81 mg PO DAILY [facility] Last Admin: 11/15/16 09:19 Dose: 81 mg Dextrose/Water (Dextrose 50% In Water) 50 ml IVPUSH ASDIRECTED PRN PRN Reason: Hypoglycemia Penicillin G Potassium 2.5 (millunits/ Sodium Chloride) 100 mls @ 55 mls/hr IV Q6H [facility] Last Admin: 11/15/16 10:09 Dose: 55 mls/hr Insulin Aspart (Novolog) 0 unit SUBCUT QIDACANDBED [facility] PRN Reason: Protocol Last Admin: 11/15/16 12:11 Dose: Not Given Losartan Potassium (Cozaar) 50 mg PO DAILY [facility] Last Admin: 11/15/16 09:19 Dose: 50 mg Saccharomyces Boulardii (Florastor) 250 mg PO BID [facility] Simvastatin (Zocor) 20 mg PO BEDTIME [facility] Last Admin: 11/14/16 21:33 Dose: 20 mg Temazepam (Restoril) 7.5 mg PO BEDTIME PRN PRN Reason: Sleep Last Admin: 11/14/16 21:32 Dose: 7.5 mg Discontinued Medications Diphtheria/Tetanus/Acell Pertussis (Adacel) 0.5 ml IM .ONCE ONE Stop: 11/14/16 10:01 Furosemide (Lasix) 40 mg IVPUSH BID@1400,1630 [facility] Stop: 11/13/16 16:31 Last Admin: 11/13/16 19:49 Dose: 40 mg Furosemide (Lasix) 40 mg IVPUSH ASDIRECTED [facility] Stop: 11/14/16 23:30 Last Admin: 11/15/16 00:03 Dose: 40 mg Ceftriaxone Sodium 2 gm/ (Sodium Chloride) 100 mls @ 200 mls/hr IV Q24H [facility] Last Admin: 11/14/16 13:46 Dose: 200 mls/hr Sodium Chloride (Normal Saline) Confirm Administered Dose 250 mls @ as directed .ROUTE .STK-MED ONE Stop: 11/13/16 11:50 Last Admin: 11/13/16 15:59 Dose: Not Given Sodium Chloride (Normal Saline) 250 mls @ 100 mls/hr IV ASDIRECTED [facility] Last Admin: 11/14/16 17:26 Dose: 100 mls/hr Pantoprazole Sodium (Protonix Iv) 80 mg IVPUSH .BOLUS ONE Stop: 11/12/16 21:23 Last Admin: 11/12/16 21:44 Dose: 80 mg - Exam Quality Assessment: DVT Prophylaxis General: Alert, Oriented, Cooperative, No Acute Distress HEENT: Pupils Equal, Pupils Reactive, Mucous Membr. Moist/[place] Neck: Supple, Trachea Midline, No JVD Lungs: Normal Respiratory Effort Cardiovascular: Regular Rate, Regular Rhythm GI/Abdominal Exam: Normal Bowel Sounds, Soft, Non-Tender, No Organomegaly, No Distention (Female) Exam: Deferred Back Exam: Normal Inspection Extremities: Normal Inspection, Non-Tender Skin: Warm Neurological: No New Focal Deficit, Normal Gait, Normal Speech Psy/Mental Status: Alert, Normal Affect, Normal Mood - Problem List & Annotations (1) Diastolic CHF SNOMED Code(s): 613751056, 917437378 Code(s): I50.30 - UNSPECIFIED DIASTOLIC (CONGESTIVE) HEART FAILURE Status: Acute Current Visit: Yes (2) Acute blood loss anemia SNOMED Code(s): 257061659 Code(s): D62 - ACUTE POSTHEMORRHAGIC ANEMIA Status: Acute Current Visit: Yes (3) Acute kidney injury SNOMED Code(s): 27508085 Code(s): N17.9 - ACUTE KIDNEY FAILURE, UNSPECIFIED Status: Acute Current Visit: Yes (4) Back pain SNOMED Code(s): 994800742 Code(s): M54.9 - DORSALGIA, UNSPECIFIED Status: Acute Current Visit: Yes Qualifiers: Back pain location: low back pain Chronicity: acute Back pain laterality : midline Sciatica presence: without sciatica Qualified Code(s): M54.5 - Low back pain (5) Shortness of breath SNOMED Code(s): 721547454 Code(s): R06.02 - SHORTNESS OF BREATH Status: Acute Current Visit: Yes - Problem List Review Problem List Initiated/Reviewed/Updated: Yes - My Orders Last 24 Hours: My Active Orders 11/15/16 10:00 Penicillin G Potassium [Pfizerpen] 2.5 millunits Sodium Chloride 0.9% [Normal Saline] 100 ml IV Q6H 11/16/16 05:00 BMP [BASIC METABOLIC PANEL,BMP] [CHEM] DAILY CBC WITH AUTO DIFF [HEME] DAILY CRP [C-REACTIVE PROTEIN] [CHEM] DAILY 11/16/16 09:00 Saccharomyces Boulardii [Florastor] 250 mg PO BID 11/17/16 05:00 CRP [C-REACTIVE PROTEIN] [CHEM] DAILY - Plan Plan:: Impression: GI bleed, hemodynamically stable Received 4 units PRBCs, currently stable History of porcine Ao valve CHF, diastolic cf systolic ARF, CKD stage IV currently Chronic Diabetes Melitus HTN HLD Plan: Diurese as tolerated Hold nephrotoxin meds Resume Home meds 2D echo re; AVR Diabetic teaching Gen surg consult Fe studies, start FeSO4 DC home 11/16/16? SW/PT/OT DVT/GI prophyalxis LOS>96 hours for treatment
[2016-11-15] MEDS: Simvastatin 20 MG Tab PO SCH (21:07)
[2016-11-15] MEDS: Temazepam 7.5 MG Cap PO PRN (21:07)
[2016-11-16] MEDS: Acetaminophen/HYDROcodone 325-5 MG Tab PO PRN (03:19)
[2016-11-16] MEDS: Penicillin G Potassium 2.5 MILLUNITS in Sodium Chloride 0.9% 100 ML IV SCH ×2 (03:27→09:10)
[2016-11-16] MEDS: Insulin Aspart 100 Units/ML 3 ML Pen SUBCUT SCH ×2 (06:45→14:00)
[2016-11-16 08:23] VITALS: BP 136/79
--- NOTE | 2016-11-16 08:46 | PCM.DCSUM1 ---
<Gretchen Wellington M - Last Filed: 11/16/16 08:58> Discharge Summary - Hospital Course Free Text/Narrative:: 76 year old female initially evaluted in the ER, who initially had a complaint of back discomfort, however was admitted for heart failure and a low hemoglobin. She has not seen a healthcare provider in many years. She is a diabetic who never checks her blood sugar. She has only seen a physician for her heart valve, three weeks after it was inserted over 20 years ago.. The most recent compliant is lower extremity swelling; she denies orthopnea, PND or chest pain. She will receive PRBCs during her hospitalization. Hospitalist service is consulted for admission for GI bleed, anemia, CHF exacerbation. She received total of 4 units PRBC's during hospital stay for low hgb. Dr. Hunter, general surgeon was consulted who recommends colonoscopy/EGD evaluation as outpatient. These appointments have been scheduled prior to discharge for the patient. A1C was 6.1, CDE was consulted who reviewed accuchecks with patient as she had never checked sugars at home. She will be instr on BID accuchecks with CDE follow up as outpatient. Follow up with PCP to manage DM as outpatient. Echocardiogram was obtained with EF of 55-60% with moderate concentric LVH, grade 2 diastolic dysfunction, biprosthetic Aortic valve, severe mitral calcification and severe biatrial dilation. CXR shows cardiomegaly with prosthetic heart valve with question of mild pulmonary vascular congestion, no findings of pneumonia or infiltrates. She has not seen a security project manager since 3 weeks post AV replacement 20+ years ago. Recommend follow up/Consult with Cardiology after discharge to follow. Renal status initially was with creatinine of 1.9, GFR of 26 for stage 4 kidney disease, improved to creatinine of 1.2 on discharge GFR of 44- stage 3. Renal US was obtained showing medical renal disease. Recommend follow up/Consult with [facility] as ouptpatient. Patient is with known medical noncompliance as noted above, her family is also well aware of this and have tried at great lengths to convince her to be compliant, obvious without success. Rx written for CBC and BMP to be done in 5-7 days prior to f/up with PCP. - Discharge Data Discharge Date: 11/16/16 (admit date 11/12/16) Discharge Disposition: Home, Self-Care 01 Condition: Good - Discharge Diagnosis/Problem(s) (1) Gastrointestinal bleed SNOMED Code(s): 35121398 ICD Code: K92.2 - GASTROINTESTINAL HEMORRHAGE, UNSPECIFIED Status: Acute Priority: High Qualifiers: GI bleed type/associated pathology: unspecified gastrointestinal hemorrhage type Qualified Code(s): K92.2 - Gastrointestinal hemorrhage, unspecified (2) Acute blood loss anemia SNOMED Code(s): 090016531 ICD Code: D62 - ACUTE POSTHEMORRHAGIC ANEMIA Status: Acute Priority: High (3) Acute kidney injury SNOMED Code(s): 27439097 ICD Code: N17.9 - ACUTE KIDNEY FAILURE, UNSPECIFIED Status: Acute Priority: High (4) Diabetes type 2, controlled SNOMED Code(s): 19121325 ICD Code: E11.9 - TYPE 2 DIABETES MELLITUS WITHOUT COMPLICATIONS Status: Chronic Priority: Medium Qualifiers: Diabetes mellitus complication status: with kidney complications Diabetes mellitus complication detail: with chronic kidney disease Diabetes mellitus halfway insulin use: without vermin exterminator use Chronic kidney disease stage: stage 4 (severe) Qualified Code(s): E11.22 - Type 2 diabetes mellitus with diabetic chronic kidney disease; N18.4 - Chronic kidney disease, stage 4 (severe ) (5) Diastolic CHF SNOMED Code(s): 460056203, 577139784 ICD Code: I50.30 - UNSPECIFIED DIASTOLIC (CONGESTIVE) HEART FAILURE Status : Chronic (6) UTI (urinary tract infection) SNOMED Code(s): 94204072 ICD Code: N39.0 - URINARY TRACT INFECTION, SITE NOT SPECIFIED Status: Acute Priority: High Qualifiers: Urinary tract infection type: acute cystitis Hematuria presence: with hematuria Qualified Code(s): N30.01 - Acute cystitis with hematuria - Patient Summary/Data Operative Procedure(s) Performed: None Complications: None Consults: Consultations 11/12/16 23:05 Consult to Physician [CONS] Routine 11/12/16 23:10 Consult to Occupational Therapy [OT Evaluation and Treatment] [CONS] Routine PT Evaluation and Treatment [CONS] Routine 11/13/16 08:00 Consult to Ornamental Metal Erector Apprentice [CONS] Routine 11/14/16 09:00 Consult to Building Pressure Washer [Consult to Diabetic Nurse Specialist] [CONS] Routine Labs Pending at D/C: None Recommended Follow-up Testing/Procedures: DC instr given to patient: Weigh yourself every morning and keep a record for your Doctor; bring record with to all doctor visits Check Blood sugars at home or please have someone help you do them, encouraged to do twice a day, record and bring record with to all doctor visits Strongly recommend follow up/consults with the following: *Cardiology- for heart valve and congestive heart failure *Nephrology- for acute on chronic kidney disease- kidney failure *General Surgery- for GI bleed and anemia evaluation- need for colonoscopy to assure no tumor or colon cancer *Linoleum Floor Layer- to assure diabetes is in check -Eye Doctor- No damage to eyes from Diabetes *Primary Care Provider- within one week of discharge who can help you coordinate all of these appointments on an outpatient basis Continued medical noncompliance will lead to worsening of all of these conditions, worsening of kidney disease progressing to kidney failure, worsening of heart failure and failure of heart valve, worsening of anemia and need for repeat blood transfusions. Failure to control or follow up with your diabetes will contribute to worsening of all of these above mentioned conditions. Planned Operative Procedure(s) after DC: None Hospital Course: As above - Patient Instructions Diet: Heart Healthy Diet, Diabetic Diet Activity: As Tolerated Driving: Do Not Drive Showering/Bathing: May Shower Notify Provider of: Fever, Increased Pain, Nausea and/or Vomiting - Discharge Plan Prescriptions/Med Rec: Penicillin V Potassium 500 mg PO QID #28 tab Home Medications: Home Meds Aspirin [Halfprin] 81 mg PO DAILY 11/12/16 [History] Furosemide 40 mg PO DAILY 11/12/16 [History] Losartan Potassium 50 mg PO DAILY 11/12/16 [History] Potassium Chloride 10 meq PO DAILY 11/12/16 [History] Simvastatin [Zocor] 20 mg PO BEDTIME 11/12/16 [History] SitaGLIPtin [Januvia] 25 mg PO DAILY 11/12/16 [History] Acetaminophen/HYDROcodone [[place] 325-5 MG] 1 tab PO Q4H PRN #0 tablet 11/16/16 [ Rx] Penicillin V Potassium 500 mg PO QID #28 tab 11/16/16 [Rx] Patient Handouts: Type 2 Diabetes Mellitus, Adult, Diabetes and Foot Care, Shortness of Breath, [id number], Anemia, Nonspecific, Urinary Tract Infection , Adult, Smqd-af-Ulsj, Chronic Kidney Disease, Hnbk-on-Agin, Gastrointestinal Bleeding, Okop-ju-Ubkf, Heart Failure, Mdjp-dc-Pgkh, Blood Transfusion, Care After, Mcgb-by-Efre Forms: ED Department Discharge Referrals: Krissy Gallo [Other] (religious educator. Appt already cancelled by pt.) Amira Champion NP [Primary Care Provider] - (Primary care provider. Appt and MRI were already cancelled by pt.) Chris Hunter MD [Physician] - 11/20/16 1:30 pm (Please attend the following appointment that is scheduled for you to have an EGD and colonoscopy performed at the date and time listed. ) - Discharge Summary/Plan Comment DC Time >30 min.: Yes (40 min) - General Info Date of Service: 11/16/16 Functional Status: Reports: Pain Controlled (back pain), Tolerating Diet, Ambulating, Urinating - Review of Systems General: Denies: Fever HEENT: Reports: No Symptoms Pulmonary: Reports: Shortness of Breath (chronic, improved since admit). Denies : Cough Cardiovascular: Reports: No Symptoms, Dyspnea on Exertion (improved). Denies: Chest Pain, Palpitations Gastrointestinal: Denies: Abdominal Pain, Nausea, Vomiting Genitourinary: Reports: No Symptoms. Denies: Dysuria, Frequency, Burning, Pain Musculoskeletal: Reports: Back Pain Neurological: Reports: No Symptoms Psychiatric: Reports: No Symptoms - Patient Data Vitals - Most Recent: Last Vital Signs Temp 97.9 F 11/16/16 08:21 Pulse 67 11/16/16 08:21 Resp 14 11/16/16 08:21 BP 136/79 11/16/16 08:21 Pulse Ox 99 11/16/16 08:21 Weight - Most Recent: 101.803 kg I&O - Last 24 hours: Intake & Output 11/15/16 11/16/16 11/16/16 22:59 06:59 14:59 Intake Total 2160 400 Output Total 1250 Balance 910 400 Lab Results - Last 24 hrs: Laboratory Results - last 24 hr 11/15/16 11/15/16 11/15/16 Range/Units 11:33 17:20 21:11 WBC (3.98-10.04) K/mm3 RBC (3.98-5.22) M/mm3 Hgb (11.2-15.7) gm/L Hct (34.1-44.9) % MCV (79.4-94.8) fl MCH (25.6-32.2) pg MCHC (32.2-35.5) g/dl RDW Std Deviation (36.4-46.3) fL Plt Count (182-369) K/mm3 MPV (9.4-12.3) fl Neut % (Auto) (34.0-71.1) % Lymph % (Auto) (19.3-51.7) % [place] % (Auto) (4.7-12.5) % Eos % (Auto) (0.7-5.8) Baso % (Auto) (0.1-1.2) % Neut # (Auto) (1.56-6.13) K/mm3 Lymph # (Auto) (1.18-3.74) K/mm3 [place] # (Auto) (0.24-0.36) K/mm3 Eos # (Auto) (0.04-0.36) K/mm3 Baso # (Auto) (0.01-0.08) K/mm3 Sodium (136-145) mEq/L Potassium (3.5-5.1) mEq/L Chloride (98-107) mEq/L Carbon Dioxide (21-32) mEq/L Anion Gap (5-15) BUN (7-18) mg/dL Creatinine (0.55-1.02) mg/dL Est Cr Clr Drug Dosing mL/min Estimated GFR (MDRD) (>60) mL/min BUN/Creatinine Ratio (14-18) Glucose (83-115) mg/dL POC Glucose 132 H 127 H 138 H (83-110) mg/dL Calcium (8.5-10.1) mg/dL C-Reactive Protein (<1.0) mg/dL 11/16/16 11/16/16 11/16/16 Range/Units 05:45 05:45 06:42 WBC 6.01 (3.98-10.04) K/mm3 RBC 3.37 L (3.98-5.22) M/mm3 Hgb 9.5 L (11.2-15.7) gm/L Hct 30.8 L (34.1-44.9) % MCV 91.4 (79.4-94.8) fl MCH 28.2 (25.6-32.2) pg MCHC 30.8 L (32.2-35.5) g/dl RDW Std Deviation 51.8 H (36.4-46.3) fL Plt Count 188 (182-369) K/mm3 MPV 10.4 (9.4-12.3) fl Neut % (Auto) 64.8 (34.0-71.1) % Lymph % (Auto) 18.8 L (19.3-51.7) % [place] % (Auto) 12.0 (4.7-12.5) % Eos % (Auto) 3.7 (0.7-5.8) Baso % (Auto) 0.5 (0.1-1.2) % Neut # (Auto) 3.90 (1.56-6.13) K/mm3 Lymph # (Auto) 1.13 L (1.18-3.74) K/mm3 [place] # (Auto) 0.72 H (0.24-0.36) K/mm3 Eos # (Auto) 0.22 (0.04-0.36) K/mm3 Baso # (Auto) 0.03 (0.01-0.08) K/mm3 Sodium 145 (136-145) mEq/L Potassium 4.2 (3.5-5.1) mEq/L Chloride 110 H (98-107) mEq/L Carbon Dioxide 26 (21-32) mEq/L Anion Gap 13.2 (5-15) BUN 44 H (7-18) mg/dL Creatinine 1.2 H (0.55-1.02) mg/dL Est Cr Clr Drug Dosing 36.75 mL/min Estimated GFR (MDRD) 44 (>60) mL/min BUN/Creatinine Ratio 36.7 H (14-18) Glucose 102 (83-115) mg/dL POC Glucose 101 (83-110) mg/dL Calcium 8.7 (8.5-10.1) mg/dL C-Reactive Protein 1.7 H* (<1.0) mg/dL Med Orders - Current: Current Medications Hydrocodone Bitart/Acetaminophen ([place] 325-5 Mg) 1 tab PO Q4H PRN PRN Reason: Pain Last Admin: 11/16/16 03:19 Dose: 1 tab Aspirin (Halfprin) 81 mg PO DAILY [facility] Last Admin: 11/15/16 09:19 Dose: 81 mg Dextrose/Water (Dextrose 50% In Water) 50 ml IVPUSH ASDIRECTED PRN PRN Reason: Hypoglycemia Penicillin G Potassium 2.5 (millunits/ Sodium Chloride) 100 mls @ 55 mls/hr IV Q6H [facility] Last Admin: 11/16/16 03:27 Dose: 55 mls/hr Insulin Aspart (Novolog) 0 unit SUBCUT QIDACANDBED [place] PRN Reason: Protocol Last Admin: 11/16/16 06:45 Dose: Not Given Losartan Potassium (Cozaar) 50 mg PO DAILY [facility] Last Admin: 11/15/16 09:19 Dose: 50 mg Saccharomyces Boulardii (Florastor) 250 mg PO BID [facility] Simvastatin (Zocor) 20 mg PO BEDTIME [facility] Last Admin: 11/15/16 21:07 Dose: 20 mg Temazepam (Restoril) 7.5 mg PO BEDTIME PRN PRN Reason: Sleep Last Admin: 11/15/16 21:07 Dose: 7.5 mg Discontinued Medications Diphtheria/Tetanus/Acell Pertussis (Adacel) 0.5 ml IM .ONCE ONE Stop: 11/14/16 10:01 Furosemide (Lasix) 40 mg IVPUSH BID@1400,1630 [facility] Stop: 11/13/16 16:31 Last Admin: 11/13/16 19:49 Dose: 40 mg Furosemide (Lasix) 40 mg IVPUSH ASDIRECTED [facility] Stop: 11/14/16 23:30 Last Admin: 11/15/16 00:03 Dose: 40 mg Ceftriaxone Sodium 2 gm/ (Sodium Chloride) 100 mls @ 200 mls/hr IV Q24H [facility] Last Admin: 11/14/16 13:46 Dose: 200 mls/hr Sodium Chloride (Normal Saline) Confirm Administered Dose 250 mls @ as directed .ROUTE .STK-MED ONE Stop: 11/13/16 11:50 Last Admin: 11/13/16 15:59 Dose: Not Given Sodium Chloride (Normal Saline) 250 mls @ 100 mls/hr IV ASDIRECTED [facility] Last Admin: 11/14/16 17:26 Dose: 100 mls/hr Pantoprazole Sodium (Protonix Iv) 80 mg IVPUSH .BOLUS ONE Stop: 11/12/16 21:23 Last Admin: 11/12/16 21:44 Dose: 80 mg - Exam Quality Assessment: Reports: DVT Prophylaxis General: Reports: Alert, Oriented, Cooperative, No Acute Distress HEENT: Reports: Pupils Equal, Pupils Reactive, EOMI, Mucous Membr. Moist/[place] Neck: Reports: Supple Lungs: Reports: Clear to Auscultation, Normal Respiratory Effort, Decreased Breath Sounds (bases) Cardiovascular: Reports: Regular Rate, Regular Rhythm, Murmurs GI/Abdominal Exam: Normal Bowel Sounds, Soft, Non-Tender (Female) Exam: Deferred Rectal (Female) Exam: Deferred Extremities: Pedal Edema (trace to 1+ bilat) Skin: Reports: Warm, Dry Neurological: Reports: No New Focal Deficit Psy/Mental Status: Reports: Alert, Normal Affect, Other (passive aggressive; today is refusing to attend any follow up visits that have been scheduled for her that have been scheduled and that she previously agreed to) *Q Meaningful Use (DIS) - VTE *Q VTE Criteria *Q: - Stroke *Q Stroke Criteria *Q: - AMI *Q AMI Criteria *Q: <Heidi Holt - Last Filed: 11/16/16 16:35> Discharge Summary - Hospital Course Free Text/Narrative:: Passive aggressive patient, see above. - Discharge Diagnosis/Problem(s) (1) Diastolic CHF SNOMED Code(s): 608672658, 745581905 ICD Code: I50.30 - UNSPECIFIED DIASTOLIC (CONGESTIVE) HEART FAILURE Status : Chronic (2) Acute blood loss anemia SNOMED Code(s): 230039877 ICD Code: D62 - ACUTE POSTHEMORRHAGIC ANEMIA Status: Acute Priority: High (3) Acute kidney injury SNOMED Code(s): 94965703 ICD Code: N17.9 - ACUTE KIDNEY FAILURE, UNSPECIFIED Status: Acute Priority: High (4) Back pain SNOMED Code(s): 167279753 ICD Code: M54.9 - DORSALGIA, UNSPECIFIED Status: Acute Qualifiers: Back pain location: low back pain Chronicity: acute Back pain laterality : midline Sciatica presence: without sciatica Qualified Code(s): M54.5 - Low back pain (5) Shortness of breath SNOMED Code(s): 718687305 ICD Code: R06.02 - SHORTNESS OF BREATH Status: Acute - Patient Summary/Data Consults: Consultations 11/12/16 23:05 Consult to Physician [CONS] Routine 11/12/16 23:10 Consult to Occupational Therapy [OT Evaluation and Treatment] [CONS] Routine PT Evaluation and Treatment [CONS] Routine 11/13/16 08:00 Consult to Ornamental Metal Erector Apprentice [CONS] Routine 11/14/16 09:00 Consult to Building Pressure Washer [Consult to Diabetic Nurse Specialist] [CONS] Routine - Patient Data Vitals - Most Recent: Last Vital Signs Temp 36.6 C 11/16/16 08:21 Pulse 67 11/16/16 08:21 Resp 14 11/16/16 08:21 BP 136/79 11/16/16 09:02 Pulse Ox 99 11/16/16 08:21 I&O - Last 24 hours: Intake & Output 11/16/16 11/16/16 11/16/16 06:59 14:59 22:59 Intake Total 400 180 Balance 400 180 Lab Results - Last 24 hrs: Laboratory Results - last 24 hr 11/15/16 11/15/16 11/16/16 Range/Units 17:20 21:11 05:45 WBC 6.01 (3.98-10.04) K/mm3 RBC 3.37 L (3.98-5.22) M/mm3 Hgb 9.5 L (11.2-15.7) gm/L Hct 30.8 L (34.1-44.9) % MCV 91.4 (79.4-94.8) fl MCH 28.2 (25.6-32.2) pg MCHC 30.8 L (32.2-35.5) g/dl RDW Std Deviation 51.8 H (36.4-46.3) fL Plt Count 188 (182-369) K/mm3 MPV 10.4 (9.4-12.3) fl Neut % (Auto) 64.8 (34.0-71.1) % Lymph % (Auto) 18.8 L (19.3-51.7) % Bea[place] % (Auto) 12.0 (4.7-12.5) % Eos % (Auto) 3.7 (0.7-5.8) Baso % (Auto) 0.5 (0.1-1.2) % Neut # (Auto) 3.90 (1.56-6.13) K/mm3 Lymph # (Auto) 1.13 L (1.18-3.74) K/mm3 [place] # (Auto) 0.72 H (0.24-0.36) K/mm3 Eos # (Auto) 0.22 (0.04-0.36) K/mm3 Baso # (Auto) 0.03 (0.01-0.08) K/mm3 Sodium (136-145) mEq/L Potassium (3.5-5.1) mEq/L Chloride (98-107) mEq/L Carbon Dioxide (21-32) mEq/L Anion Gap (5-15) BUN (7-18) mg/dL Creatinine (0.55-1.02) mg/dL Est Cr Clr Drug Dosing mL/min Estimated GFR (MDRD) (>60) mL/min BUN/Creatinine Ratio (14-18) Glucose (83-115) mg/dL POC Glucose 127 H 138 H (83-110) mg/dL Calcium (8.5-10.1) mg/dL C-Reactive Protein (<1.0) mg/dL 11/16/16 11/16/16 11/16/16 Range/Units 05:45 06:42 11:09 WBC (3.98-10.04) K/mm3 RBC (3.98-5.22) M/mm3 Hgb (11.2-15.7) gm/L Hct (34.1-44.9) % MCV (79.4-94.8) fl MCH (25.6-32.2) pg MCHC (32.2-35.5) g/dl RDW Std Deviation (36.4-46.3) fL Plt Count (182-369) K/mm3 MPV (9.4-12.3) fl Neut % (Auto) (34.0-71.1) % Lymph % (Auto) (19.3-51.7) % [place] % (Auto) (4.7-12.5) % Eos % (Auto) (0.7-5.8) Baso % (Auto) (0.1-1.2) % Neut # (Auto) (1.56-6.13) K/mm3 Lymph # (Auto) (1.18-3.74) K/mm3 [place] # (Auto) (0.24-0.36) K/mm3 Eos # (Auto) (0.04-0.36) K/mm3 Baso # (Auto) (0.01-0.08) K/mm3 Sodium 145 (136-145) mEq/L Potassium 4.2 (3.5-5.1) mEq/L Chloride 110 H (98-107) mEq/L Carbon Dioxide 26 (21-32) mEq/L Anion Gap 13.2 (5-15) BUN 44 H (7-18) mg/dL Creatinine 1.2 H (0.55-1.02) mg/dL Est Cr Clr Drug Dosing 36.75 mL/min Estimated GFR (MDRD) 44 (>60) mL/min BUN/Creatinine Ratio 36.7 H (14-18) Glucose 102 (83-115) mg/dL POC Glucose 101 103 (83-110) mg/dL Calcium 8.7 (8.5-10.1) mg/dL C-Reactive Protein 1.7 H* (<1.0) mg/dL Med Orders - Current: Current Medications Discontinued Medications Hydrocodone Bitart/Acetaminophen ([place] 325-5 Mg) 1 tab PO Q4H PRN PRN Reason: Pain Last Admin: 11/16/16 03:19 Dose: 1 tab Aspirin (Halfprin) 81 mg PO DAILY [facility] Last Admin: 11/16/16 09:02 Dose: 81 mg Dextrose/Water (Dextrose 50% In Water) 50 ml IVPUSH ASDIRECTED PRN PRN Reason: Hypoglycemia Diphtheria/Tetanus/Acell Pertussis (Adacel) 0.5 ml IM .ONCE ONE Stop: 11/14/16 10:01 Last Admin: 11/16/16 12:29 Dose: 0.5 ml Furosemide (Lasix) 40 mg IVPUSH BID@1400,1630 [facility] Stop: 11/13/16 16:31 Last Admin: 11/13/16 19:49 Dose: 40 mg Furosemide (Lasix) 40 mg IVPUSH ASDIRECTED [facility] Stop: 11/14/16 23:30 Last Admin: 11/15/16 00:03 Dose: 40 mg Ceftriaxone Sodium 2 gm/ (Sodium Chloride) 100 mls @ 200 mls/hr IV Q24H [facility] Last Admin: 11/14/16 13:46 Dose: 200 mls/hr Sodium Chloride (Normal Saline) Confirm Administered Dose 250 mls @ as directed .ROUTE .STK-MED ONE Stop: 11/13/16 11:50 Last Admin: 11/13/16 15:59 Dose: Not Given Sodium Chloride (Normal Saline) 250 mls @ 100 mls/hr IV ASDIRECTED [facility] Last Admin: 11/14/16 17:26 Dose: 100 mls/hr Penicillin G Potassium 2.5 (millunits/ Sodium Chloride) 100 mls @ 55 mls/hr IV Q6H [facility] Last Admin: 11/16/16 09:10 Dose: 55 mls/hr Insulin Aspart (Novolog) 0 unit SUBCUT QIDACANDBED [facility] PRN Reason: Protocol Last Admin: 11/16/16 14:00 Dose: Not Given Losartan Potassium (Cozaar) 50 mg PO DAILY [facility] Last Admin: 11/16/16 09:02 Dose: 50 mg Pantoprazole Sodium (Protonix Iv) 80 mg IVPUSH .BOLUS ONE Stop: 11/12/16 21:23 Last Admin: 11/12/16 21:44 Dose: 80 mg Saccharomyces Boulardii (Florastor) 250 mg PO BID [facility] Last Admin: 11/16/16 09:02 Dose: 250 mg Simvastatin (Zocor) 20 mg PO BEDTIME [facility] Last Admin: 11/15/16 21:07 Dose: 20 mg Temazepam (Restoril) 7.5 mg PO BEDTIME PRN PRN Reason: Sleep Last Admin: 11/15/16 21:07 Dose: 7.5 mg *Q Meaningful Use (DIS) - VTE *Q VTE Criteria *Q: - Stroke *Q Stroke Criteria *Q: - AMI *Q AMI Criteria *Q:
[2016-11-16] MEDS ORDERED: Saccharomyces Boulardii (Probiotic) 250 MG Cap PO SCH (09:00)
[2016-11-16] MEDS: Aspirin 81 MG Tab.EC PO SCH (09:02)
[2016-11-16] MEDS: Losartan 25 MG Tab PO SCH (09:02)
== END 2016-11-16 13:04 | disposition home or self-care (01) | DRG 378 ==
LOC: JD.ED 19:27 → JD.MS 21:35 → UNDOADMIN 22:33 → UNDODISIN 11-16 13:04
PROVIDERS: ADMIT Internal Medicine Cardiovascular Disease; ATTEND Internal Medicine Cardiovascular Disease
PROC: 30233N1 Transfusion of Nonautologous Red Blood Cells into Peripheral Vein, Percutaneous Approach (ICD-10-PCS; principal; 2016-11-13)
DX: K92.2 Gastrointestinal hemorrhage, unspecified (principal); D62 Acute posthemorrhagic anemia; I13.0 Hypertensive heart and chronic kidney disease with heart failure and stage 1 through stage 4 chronic kidney disease, or unspecified chronic kidney disease; M54.5 Low back pain; I10 Essential (primary) hypertension; E11.9 Type 2 diabetes mellitus without complications; I50.30 Unspecified diastolic (congestive) heart failure; N18.4 Chronic kidney disease, stage 4 (severe); Z95.2 Presence of prosthetic heart valve; N17.9 Acute kidney failure, unspecified; E11.22 Type 2 diabetes mellitus with diabetic chronic kidney disease; Z79.84 Long term (current) use of oral hypoglycemic drugs; Z95.3 Presence of xenogenic heart valve; E78.5 Hyperlipidemia, unspecified; K59.09 Other constipation; Z79.82 Long term (current) use of aspirin; Z79.899 Other long term (current) drug therapy
CPT/HCPCS: 36415; 71010; 80053; 81001; 82248; 83010; 83615; 83625; 83880; 84484; 85025; 85610; 86850; 86900; 86901; 86922 ×2; 87086; 87088; 87186; 93005; 96374; 99285; C9113; 36430; 76770; 76770-26; 80048; 82962; 83036; 83540; 84466; 85018; 85027; 86140; 90715; 93306; 97161-GP; 97165-GO; 99284; A9270-GY; J0696; J1815-GY; J1940; J2540; J7030; J7050; P9016

== ENCOUNTER 2016-11-20 14:14 | Day surgery (SDC) | payer MEDICARE, BC ==
--- NOTE | 2016-11-20 14:44 | PCM.PREANE ---
Preanesthetic Assessment - Anesthesia/Transfusion/Family Hx Anesthesia History: Prior Anesthesia Without Reaction Type of Anesthesia Reaction: Other (see below) Family History of Anesthesia Reaction: No Transfusion History: Prior Transfusion Without Reaction - Review of Systems General: Weakness, Fatigue, Malaise Pulmonary: Shortness of Breath, Wheezing Cardiovascular: Chest Pain (cp on admission to hospital on 11/13 EKG and echo completed), Other (EF55-60%, 2+ pitting edema ankles, states they are less swollen then they have been in a long time. 11/13 ECHO, shows severe biatrial dilation, mod TVR, moderate LVH, EKG shows NSR with LBBB, HTN, increased cholesterol, received 2 units of PRBCs in hospital, HGB on 11/16 was 9.5) Gastrointestinal: Constipation (last month to 2 months) Neurological: No Symptoms Other: Reports: None, Diabetes - Physical Assessment NPO Status Date: 11/19/16 NPO Status Time: 21:30 Pulse: 59 O2 Sat by Pulse Oximetry: 95 Respiratory Rate: 20 Blood Pressure: 152/45 Temperature: 36.6 C Height: 1.68 m Weight: 101.803 kg ASA Class: 3 Mental Status: Alert & Oriented x3 Airway Class: Mallampati = 3 Dentition: Reports: Dentures (upper) Thyro-Mental Finger Breadths: 3 Mouth Opening Finger Breadths: 2 ROM/Head Extension: Limited/Partial Lungs: Clear to Auscultation, Normal Respiratory Effort, Decreased Breath Sounds Cardiovascular: Regular Rate, Regular Rhythm, Murmurs - Allergies Allergies/Adverse Reactions: Allergies Allergy/AdvReac Type Severity Reaction Status Date / Time No Known Allergies Allergy Verified 11/12/16 23:07 - Blood Blood Available: No Product(s) Available: None - Anesthesia Plan Pre-Op Medication Ordered: None - Acknowledgements Anesthesia Type Planned: MAC Pt an Appropriate Candidate for the Planned Anesthesia: Yes Alternatives and Risks of Anesthesia Discussed w Pt/Guardian: Yes Pt/Guardian Understands and Agrees with Anesthesia Plan: Yes PreAnesthesia Questionnaire Cardiovascular History: Reports: Heart Failure, Heart Murmur, Heart Valve Replacement, High Cholesterol, Hypertension Gastrointestinal History: Reports: Chronic Constipation Musculoskeletal History: Reports: Back Pain, Chronic Other Musculoskeletal History: C/o low back pain. Unsure of reason. Endocrine/Metabolic History: Reports: Diabetes, Type II - Past Surgical History HEENT Surgical History: Reports: Cataract Surgery Cardiovascular Surgical History: Reports: Valve Replacement - SUBSTANCE USE Smoking Status *Q: Never Smoker Second Hand Smoke Exposure: Yes Recreational Drug Use History: No - HOME MEDS Home Medications: Home Meds Aspirin [Halfprin] 81 mg PO DAILY 11/12/16 [History] Furosemide 40 mg PO DAILY 11/12/16 [History] Losartan Potassium 50 mg PO DAILY 11/12/16 [History] Potassium Chloride 10 meq PO DAILY 11/12/16 [History] Simvastatin [Zocor] 20 mg PO BEDTIME 11/12/16 [History] SitaGLIPtin [Januvia] 25 mg PO DAILY 11/12/16 [History] Acetaminophen/HYDROcodone [[place] 325-5 MG] 1 tab PO Q4H PRN #0 tablet 11/16/16 [ Rx] Penicillin V Potassium 500 mg PO QID #28 tab 11/16/16 [Rx]
[2016-11-20] MEDS ORDERED: Sodium Chloride 0.9% 10 ML Syringe FLUSH PRN (15:11)
[2016-11-20] MEDS ORDERED: Lactated Ringers 1,000 ML IV SCH (15:15)
[2016-11-20] MEDS ORDERED: 50% Dextrose in Water 50 ML Syringe IVPUSH PRN (15:19)
[2016-11-20] MEDS ORDERED: fentaNYL 100 MCG/2 ML SDV ONE (15:21)
[2016-11-20] MEDS ORDERED: Propofol 200 MG/20 ML SDV ONE ×2 (15:21)
[2016-11-20] MEDS ORDERED: Simethicone Drops 40 MG/0.6 ML 30 ML Bottle ONE (15:41)
[2016-11-20] MEDS ORDERED: Lidocaine 1%/Sod Bicarbonate in NS 8.4% 1 ML Syringe IV ONE (15:51)
[2016-11-20] MEDS ORDERED: Ondansetron 4 MG/2 ML SDV ONE (16:01)
--- NOTE | 2016-11-20 16:06 | PCM.OPNOTE ---
- General Post-Op/Procedure Note Date of Surgery/Procedure: 11/20/16 Operative Procedure(s): egd with bx and colonosocopy Pre Op Diagnosis: anemia blood loss Post-Op Diagnosis: Same Anesthesia Technique: MAC Primary Surgeon: Chris Hunter EBL in mLs: 0 Complications: None Condition: Good
--- NOTE | 2016-11-20 16:19 | PCM48HPAN ---
Post Anesthesia Note - EVALUATION WITHIN 48HRS OF ANESTHETIC Vital Signs in Normal Range: Yes Patient Participated in Evaluation: Yes Respiratory Function Stable: Yes Airway Patent: Yes Cardiovascular Function Stable: Yes Hydration Status Stable: Yes Pain Control Satisfactory: Yes Nausea and Vomiting Control Satisfactory: Yes Mental Status Recovered: Yes - COMMENTS/OBSERVATIONS Free Text/Narrative:: Patient verbalizing comfort, awake, blood glucose recheck 91 mg/dl.
[2016-11-20 17:01] VITALS: BP 137/44
--- NOTE | 2016-11-21 08:49 | OR ---
DATE OF OPERATION: 11/20/2016 SURGEON: Chris Hunter MD PREOPERATIVE DIAGNOSIS: Anemia blood loss. POSTOPERATIVE DIAGNOSIS: Anemia blood loss. OPERATION PERFORMED: Esophagogastroduodenoscopy with biopsy. FINDINGS: Petechiae noted in the antrum consistent with gastritis. A small sliding hiatal hernia was noted. GE junction was free of any acute process as was the balance of the esophagus. The second portion of the duodenum, duodenal bulb, pyloric channel, body, cardia and fundus of the stomach was free of any disease. ANESTHESIA: Done under IV sedation. DESCRIPTION OF PROCEDURE: The patient was taken to the endoscopy room, connected monitoring equipment, given IV sedation, placed in left lateral position. A bite block was inserted and video Olympus gastroscope placed in a posterior oropharynx under direct vision, threaded past the cricopharyngeus, down the esophagus, into the stomach. The stomach was insufflated and the scope was passed through the pylorus to the second portion of the duodenum, it was slowly withdrawn showing the normal second portion of the duodenum, duodenal bulb, pyloric channel. Antrum showed pathology of the redness and streaks of petechiae and this area was biopsied. Body and cardia, and fundus of the stomach was viewed. J-maneuver was performed along with the hiatus, only hiatal hernia was noted. Gastritis did not seem to extend to that area. Scope was withdrawn to the GE junction which was located about 37 cm and it was free of any acute disease. Rest of the esophagus viewed as the scope withdrawn, it was unremarkable. Specimen was sent to pathology in a labeled container. IV sedation continued for colonoscopy. ESTIMATED BLOOD LOSS: MMODAL /[id number]
--- NOTE | 2016-11-21 08:49 | OR ---
DATE OF OPERATION: 11/20/2016 SURGEON: Chris Hunter MD PREOPERATIVE DIAGNOSIS: Anemia, probably blood loss. POSTOPERATIVE DIAGNOSIS: Anemia, probably blood loss. OPERATION PERFORMED: Colonoscopy to cecum. FINDINGS: Normal study. No angiodysplasia, neoplasia, large tumor masses, diverticulum, hemorrhoids, or ulcerations. ANESTHESIA: Done under IV sedation. DESCRIPTION OF PROCEDURE: The patient having been taken to the endoscopy room and given IV sedation for upper GI endoscopy, this was continued for colonoscopy, she was placed in left lateral position. Perianal area showed hemorrhoidal tags. Rectal exam showed good sphincter tone. A video Olympus colonoscope was then introduced into the rectum and threaded up to the cecum, where the appendicular orifice was seen. Prep was excellent. [place] [employer] Score grade B. The scope slowly withdrawn showing the cecum, ascending colon, transverse colon, descending colon, sigmoid colon, and rectum. Retroflexed view was done. The patient tolerated the procedure, sent to recovery room in a stable condition. She will be followed up as needed by family doctor. ESTIMATED BLOOD LOSS: MMODAL /[id number]
== END 2016-11-20 17:00 | disposition home or self-care (01) ==
LOC: JD.SDS 14:14
PROVIDERS: ATTEND Surgery
PROC: 0DB68ZX Excision of Stomach, Via Natural or Artificial Opening Endoscopic, Diagnostic (ICD-10-PCS; principal; 2016-11-20)
PROC: 0DJD8ZZ Inspection of Lower Intestinal Tract, Via Natural or Artificial Opening Endoscopic (ICD-10-PCS; 2016-11-20)
DX: K29.50 Unspecified chronic gastritis without bleeding (principal); K44.9 Diaphragmatic hernia without obstruction or gangrene; D62 Acute posthemorrhagic anemia; I13.0 Hypertensive heart and chronic kidney disease with heart failure and stage 1 through stage 4 chronic kidney disease, or unspecified chronic kidney disease; E11.22 Type 2 diabetes mellitus with diabetic chronic kidney disease; N18.4 Chronic kidney disease, stage 4 (severe); I50.30 Unspecified diastolic (congestive) heart failure; N17.9 Acute kidney failure, unspecified; E78.00 Pure hypercholesterolemia, unspecified; K59.09 Other constipation; Z79.82 Long term (current) use of aspirin; Z79.84 Long term (current) use of oral hypoglycemic drugs; Z79.899 Other long term (current) drug therapy; Z95.2 Presence of prosthetic heart valve; Z98.890 Other specified postprocedural states
CPT/HCPCS: 43239; 45378; 82962; 88305; A9270; J2405; J3010; J7060; J7120; 00810; J2704